=== PATIENT | female | born 1990 | race Hispanic/Latino ===

== ENCOUNTER 2025-08-11 23:28 | Inpatient (IN) | payer MEDICAID, OTHER ==
[2025-08-11] MEDS ORDERED: hydrALAZINE 20 MG/ML VIAL SLOW IVP PRN ×2 (23:30→23:51)
[2025-08-11] MEDS ORDERED: Oxytocin 30 units/NS 500 ML 500 ML IV SCH (23:45)
[2025-08-11 23:51] VITALS: BMI 25.6
[2025-08-11] MEDS ORDERED: Methylergonovine 0.2 MG/ML VIAL IM PRN (23:51)
[2025-08-11] MEDS ORDERED: Ondansetron PF 4 MG/2 ML Vial IVP PRN (23:51)
[2025-08-11] MEDS ORDERED: Diphenoxylate HCl/Atropine Tablet PO PRN (23:51)
[2025-08-11] MEDS ORDERED: Tranexamic Acid 1,000 MG/10 ML VIAL IVP PRN (23:51)
[2025-08-11] MEDS ORDERED: Acetaminophen 500 MG TAB PO PRN (23:51)
[2025-08-11] MEDS ORDERED: Carboprost 250 MCG/ML AMP IM PRN (23:51)
[2025-08-12 00:16] LABS: #Basophils Less than 0.03 10x3/uL (0.0-0.2); #Eosinophils 0.06 10x3/uL (0.0-0.5); #Monocytes 0.60 10x3/uL (0.0-1.1); #Neutrophils 5.73 10x3/uL (1.5-8.4); %Basophils 0.2 % (0.0-2.0); %Eosinophils 0.7 % (0.0-6.0); %Lymphocytes 24.5 % (18.0-47.0); %Monocytes 7.0 % (0.0-10.0); %Neutrophils 66.9 % (40.0-75.0); Hematocrit 28.0 % (34.9-44.5); Hemoglobin 9.5 g/dL (12.0-15.5); Mean Corpuscular Hemoglobin 29.5 pg (27.0-33.0); Mean Corpuscular Volume 87.0 fL (81.6-98.3); Platelet Count 274 10x3/uL (150-450); Red Blood Cell (RBC) Count 3.22 10x6/uL (3.90-5.03); White Blood Cell (WBC) Count 8.57 10x3/uL (3.5-10.5)
[2025-08-12 00:24] LABS: Platelet Count 250.0 10x3/uL (150-450)
[2025-08-12 00:38] LABS: ALT (SGPT) 11 U/L (Less than 34); AST (SGOT) 17 U/L (11-34); Albumin 3.1 g/dL (3.1-4.5); Alkaline Phosphatase 112 U/L (40-110); Anion Gap 14 mmol/L (10-20); BUN (Urea Nitrogen) 9 mg/dL (7.0-18.7); Bilirubin, Total 0.2 mg/dL (0.3-1.2); Calc. Creatinine Clearance 127 mL/min (70-130); Calcium 8.7 mg/dL (7.8-10.44); Carbon Dioxide 19 mmol/L (22-29); Chloride 108 mmol/L (98-107); Globulin 3.5 g/dL (2.4-3.5); Glucose 79 mg/dL (70-105); Potassium 3.4 mmol/L (3.5-5.1); Sodium 138 mmol/L (136-145)
[2025-08-12 00:42] LABS: D-Dimer Test 1.33 mcg/mL (0.19-0.50); Fibrinogen 479.0 mg/dL (220-504); INR-International Normal Ratio 0.9; PTT 25.4 sec (22.0-33.0); Prothrombin Time 10.0 sec (9.5-12.1)
[2025-08-12 00:56] LABS: Hep B Surf Ag - L&D Non-Reactive S/CO (NonReactive)
[2025-08-12 00:57] LABS: Syphilis Antibody Index 0.04 S/CO (<1.00 Non-Reactive)
[2025-08-12 08:08] LABS: #Basophils Less than 0.03 10x3/uL (0.0-0.2); #Eosinophils Less than 0.03 10x3/uL (0.0-0.5); #Monocytes 0.17 10x3/uL (0.0-1.1); #Neutrophils 7.42 10x3/uL (1.5-8.4); %Basophils 0.2 % (0.0-2.0); %Eosinophils 0.0 % (0.0-6.0); %Lymphocytes 14.6 % (18.0-47.0); %Monocytes 1.9 % (0.0-10.0); %Neutrophils 82.3 % (40.0-75.0); Hematocrit 25.9 % (34.9-44.5); Hemoglobin 8.7 g/dL (12.0-15.5); Mean Corpuscular Hemoglobin 29.9 pg (27.0-33.0); Mean Corpuscular Volume 89.0 fL (81.6-98.3); Platelet Count 218 10x3/uL (150-450); Red Blood Cell (RBC) Count 2.91 10x6/uL (3.90-5.03); White Blood Cell (WBC) Count 9.02 10x3/uL (3.5-10.5)
[2025-08-13 07:34] LABS: Hematocrit 23.7 % (34.9-44.5); Hemoglobin 8.0 g/dL (12.0-15.5); Mean Corpuscular Hemoglobin 29.6 pg (27.0-33.0); Mean Corpuscular Volume 87.8 fL (81.6-98.3); Platelet Count 232 10x3/uL (150-450); Red Blood Cell (RBC) Count 2.70 10x6/uL (3.90-5.03); White Blood Cell (WBC) Count 7.96 10x3/uL (3.5-10.5)
[2025-08-13 07:58] LABS: ALT (SGPT) 10 U/L (Less than 34); AST (SGOT) 14 U/L (11-34); Albumin 2.4 g/dL (3.1-4.5); Alkaline Phosphatase 86 U/L (40-110); Anion Gap 17 mmol/L (10-20); BUN (Urea Nitrogen) 11 mg/dL (7.0-18.7); Bilirubin, Total 0.2 mg/dL (0.3-1.2); Calc. Creatinine Clearance 123 mL/min (70-130); Calcium 8.1 mg/dL (7.8-10.44); Carbon Dioxide 16 mmol/L (22-29); Chloride 110 mmol/L (98-107); Globulin 2.7 g/dL (2.4-3.5); Glucose 123 mg/dL (70-105); Potassium 3.9 mmol/L (3.5-5.1); Sodium 139 mmol/L (136-145)
[2025-08-14 05:52] LABS: Hematocrit 24.5 % (34.9-44.5); Hemoglobin 8.0 g/dL (12.0-15.5); Mean Corpuscular Hemoglobin 29.3 pg (27.0-33.0); Mean Corpuscular Volume 89.7 fL (81.6-98.3); Platelet Count 181 10x3/uL (150-450); Red Blood Cell (RBC) Count 2.73 10x6/uL (3.90-5.03); White Blood Cell (WBC) Count 9.29 10x3/uL (3.5-10.5)
[2025-08-14 08:41] VITALS: BP 103/55; TEMP 97.7
== END 2025-08-14 11:00 | disposition home or self-care (01) | DRG 833 ==
LOC: CSHLD/OP 23:28 → CSHLD 23:56 → CSHANTE 08-12 10:35
PROVIDERS: ADMIT Family Medicine; ATTEND Family Medicine
DX: O46.93 Antepartum hemorrhage, unspecified, third trimester (principal); O99.02 Anemia complicating childbirth; O26.53 Maternal hypotension syndrome, third trimester; Z79.899 Other long term (current) drug therapy; Z3A.32 32 weeks gestation of pregnancy
CPT/HCPCS: 36415; 76817; 76819; 80053; 82728; 83540; 85025; 85027; 85049; 85300; 85362; 85384; 85610; 85730; 86780; 86850; 86900; 86901; 87340; J0702; J1756; J7120

== ENCOUNTER 2025-09-18 10:20 | Inpatient (IN) | payer MEDICAID, OTHER, SELFPAY ==
[2025-09-18] MEDS ORDERED: hydrALAZINE 20 MG/ML VIAL SLOW IVP PRN ×3 (11:46→19:28)
[2025-09-18 12:50] LABS: #Basophils Less than 0.03 10x3/uL (0.0-0.2); #Eosinophils 0.06 10x3/uL (0.0-0.5); #Monocytes 0.54 10x3/uL (0.0-1.1); #Neutrophils 4.78 10x3/uL (1.5-8.4); %Basophils 0.3 % (0.0-2.0); %Eosinophils 0.9 % (0.0-6.0); %Lymphocytes 20.0 % (18.0-47.0); %Monocytes 7.9 % (0.0-10.0); %Neutrophils 69.7 % (40.0-75.0); Hematocrit 27.9 % (34.9-44.5); Hemoglobin 9.6 g/dL (12.0-15.5); Mean Corpuscular Hemoglobin 30.3 pg (27.0-33.0); Mean Corpuscular Volume 88.0 fL (81.6-98.3); Platelet Count 199 10x3/uL (150-450); Red Blood Cell (RBC) Count 3.17 10x6/uL (3.90-5.03); White Blood Cell (WBC) Count 6.85 10x3/uL (3.5-10.5)
[2025-09-18] MEDS ORDERED: Methylergonovine 0.2 MG/ML VIAL IM PRN (13:03)
[2025-09-18] MEDS ORDERED: Ondansetron PF 4 MG/2 ML Vial IVP PRN ×3 (13:03→14:08)
[2025-09-18] MEDS ORDERED: Carboprost 250 MCG/ML AMP IM PRN (13:03)
[2025-09-18] MEDS ORDERED: Tranexamic Acid 1,000 MG/10 ML VIAL IVP PRN (13:03)
[2025-09-18] MEDS ORDERED: Diphenoxylate HCl/Atropine Tablet PO PRN (13:03)
[2025-09-18] MEDS ORDERED: Famotidine/PF 20 mg/2ml Vial SLOW IVP PRN (13:08)
[2025-09-18] MEDS ORDERED: Bicitra 30 ML UDCUP PO PRN (13:08)
[2025-09-18] MEDS ORDERED: Oxytocin 30 units/NS 500 ML 500 ML IV SCH (13:15)
[2025-09-18] MEDS ORDERED: diphenhydrAMINE 50 MG/ML VIAL IVP PRN (14:08)
[2025-09-18] MEDS ORDERED: Meperidine HCl/PF 25 MG (1 mL) VIAL SLOW IVP PRN (14:08)
[2025-09-18] MEDS ORDERED: HYDROmorphone 0.5 MG/0.5 ML SYRINGE SLOW IVP PRN (14:09)
[2025-09-18] MEDS ORDERED: Communication Order-Pharmacy FS SCH (14:15)
[2025-09-18 14:18] LABS: Hep B Surf Ag - L&D Non-Reactive S/CO (NonReactive)
[2025-09-18 14:19] LABS: Syphilis Antibody Index 0.06 S/CO (<1.00 Non-Reactive)
[2025-09-18] MEDS ORDERED: Ketorolac Tromethamine 30 MG (1 mL) VIAL IVP SCH (17:00)
[2025-09-18] MEDS ORDERED: Lanolin Ointment 7 GM TUBE TOP PRN (19:28)
[2025-09-18] MEDS ORDERED: Boostrix 0.5 ML (Tdap) VIAL (>/=7 yrs of age) IM ONE (19:28)
[2025-09-18] MEDS: Ketorolac Tromethamine 30 MG (1 mL) VIAL IVP PRN (20:35)
[2025-09-18] MEDS: Dexamethasone 10 MG/ML VIAL ONE (20:55)
[2025-09-18] MEDS: Ondansetron PF 4 MG/2 ML Vial ONE (20:56)
[2025-09-18] MEDS: Oxytocin 10 UNITS/ML VIAL ONE (20:57)
[2025-09-18] MEDS: Erythromycin Base 0.5% Oint 1 GM TUBE ONE (20:57)
[2025-09-18] MEDS: Phenylephrine 40 MG/NS 250 ML 250 ML ONE (20:57)
[2025-09-18] MEDS: Famotidine/PF 20 mg/2ml Vial ONE (20:58)
[2025-09-18] MEDS: Tranexamic Acid 1,000 MG/10 ML VIAL ONE (20:58)
[2025-09-18] MEDS: Ferrous Sulfate 325 MG TAB PO SCH (20:59)
[2025-09-19 04:12] LABS: Hematocrit 22.9 % (34.9-44.5); Hemoglobin 8.0 g/dL (12.0-15.5); Mean Corpuscular Hemoglobin 30.0 pg (27.0-33.0); Mean Corpuscular Volume 85.8 fL (81.6-98.3); Platelet Count 202 10x3/uL (150-450); Red Blood Cell (RBC) Count 2.67 10x6/uL (3.90-5.03); White Blood Cell (WBC) Count 10.20 10x3/uL (3.5-10.5)
[2025-09-19] MEDS: Simethicone Chewable 80 MG TAB PO PRN (05:26)
[2025-09-19] MEDS: HYDROcodone/Acetaminophen 5/325 mg Tablet PO PRN ×2 (08:26→22:16)
[2025-09-19] MEDS ORDERED: Sodium Ferric Gluconate 250 MG in Sodium Chloride 0.9% 250 ML 250 ML IVPB SCH (09:00)
[2025-09-19] MEDS ORDERED: IRON SUCROSE COMPLEX 100 MG/5 ML SLOW IVP SCH (09:15)
[2025-09-19] MEDS: diphenhydrAMINE 25 MG CAP PO PRN (11:37)
[2025-09-19] MEDS: Ibuprofen 800 MG TAB PO SCH (21:25)
[2025-09-20] MEDS: Acetaminophen 325 MG TAB PO PRN (15:30)
[2025-09-21 07:47] VITALS: BP 109/62; TEMP 97.4
== END 2025-09-21 17:00 | disposition home or self-care (01) | DRG 787 ==
LOC: CSHLD/OP 10:20 → CSHLD 13:24 → CSHPP 19:20
PROVIDERS: ADMIT Family Medicine; ATTEND Family Medicine
PROC: 10D00Z1 Extraction of Products of Conception, Low, Open Approach (ICD-10-PCS; principal; 2025-09-18)
DX: O45.93 Premature separation of placenta, unspecified, third trimester (principal); D62 Acute posthemorrhagic anemia; O44.03 Complete placenta previa NOS or without hemorrhage, third trimester; Z3A.37 37 weeks gestation of pregnancy; Z37.0 Single live birth; Z79.899 Other long term (current) drug therapy; O99.02 Anemia complicating childbirth; D64.9 Anemia, unspecified
CPT/HCPCS: 36415; 51702; 76815; 85025; 85027; 86780; 86850; 86900; 86901; 87340; 99285; J1100; J1308; J1885; J2274; J2405; J2590; J2916